=== PATIENT | female | born 1990 | race Caucasian/White ===

== ENCOUNTER 2021-07-22 09:42 | Emergency (ER) | payer SELFPAY ==
[~2021-07-22] VITALS: Ht 165.1 cm; Wt 89.0 kg
--- NOTE | 2021-07-22 09:45 | PHYS DOC ---
General Adult EDM: Chief Complaint: SEIZURE HPI: HPI: Patient is a 31 year old female who presents from home via EMS for reported seizure-like activity. Her boyfriend reportedly noticed that she was shaking while in bed, and she had previously been asleep. EMS reports that she seemed postictal, was apparently briefly combative and confused. She was given IM Versed in route. Currently, she is slightly drowsy but she is awake, fully oriented. She has no recollection of these events. She reports that she felt well when she went to bed last night. She reports she has a mild headache currently. She denies numbness or tingling. She denies chest pain, dyspnea, palpitations, dizziness, vertigo, motor weakness. She denies abdominal pain, nausea or vomiting. She denies use of benzodiazepines or alcohol, also denies any recent cessation of these substances. No prior history of seizures or epilepsy. She does report she has not been sleeping very well lately. She reports that she has been eating and drinking normally. She denies any fevers or chills or recent illness. She denies neck pain or stiffness. She denies any fall, head injury or loss of consciousness recently. She denies or recent state. Review of Systems: Review of Systems: Constitutional: Denies fever or chills. [] Eyes: Denies change in visual acuity., Denies vision loss. HENT: Denies nasal congestion or sore throat. [] Respiratory: Denies cough or shortness of breath. [] Cardiovascular: Denies chest pain or edema. [] GI: Denies abdominal pain, nausea, vomiting, or bowel habit changes. : Denies any urinary symptoms. Musculoskeletal: Denies back pain or joint pain. [] Integument: Denies rash. [] Neurologic: She does report a headache. She denies focal weakness or numbness or tingling. Seizure-like activity reported with postictal period. She denies dizziness or vertigo. She denies syncope. Endocrine: Denies polyuria or polydipsia. [] Lymphatic: Denies swollen glands. [] Psychiatric: Denies depression or anxiety. [] Heart Score: C/O Chest Pain: No Risk Factors: Risk Factors: DM, Current or recent (<one month) smoker, HTN, HLP, family history of CAD, obesity. Risk Scores: Score 0 - 3: 2.5% MACE over next 6 weeks - Discharge Home Score 4 - 6: 20.3% MACE over next 6 weeks - Admit for Clinical Observation Score 7 - 10: 72.7% MACE over next 6 weeks - Early Invasive Strategies Physical Exam: PE: Constitutional: Well developed, well nourished, no acute distress, non-toxic appearance. [] HENT: Normocephalic, atraumatic, oropharynx is patent and clear. No dental or oral trauma or bleeding is noted. Mucous membranes are moist. TMs are clear bilaterally. Nares are patent. No rhinorrhea or epistaxis. Eyes: PERRL, EOMI, conjunctiva normal, no discharge, sclera are clear and anicteric. Neck: Normal range of motion, no tenderness, supple, no stridor. Trachea is midline. No meningismus. Cardiovascular: Tachycardic, regular, +2 radial and dorsalis pedis pulses bilaterally. Lungs & Thorax: Bilateral breath sounds clear to auscultation [] Abdomen: Abdomen is soft, nondistended, nontender to palpation, no palpable masses organomegaly. Skin: Warm, dry, no erythema, no rash. No jaundice. Back: No tenderness, no CVA tenderness. [] Extremities: No tenderness, no cyanosis, no clubbing, ROM intact, no edema. [] Neurologic: Mildly drowsy but awake. She is oriented X 3, cranial nerves II through XII grossly intact. 5 out of 5 motor strength all 4 extremities. Sensation is grossly intact. Speech is clear and fluent. No pronator drift. No dysmetria. No limb ataxia. Psychologic: She has a slightly flat affect, she is tearful, she is pleasant cooperative EKG: EKG: EKG is interpreted at 1014 Rhythm is sinus Rate is 100 bpm No acute ischemia [place] is normal No STEMI Radiology/Procedures: Radiology/Procedures: IMAGING REPORT Signed PATIENT: TORI SIMON NACCOUNT: [id number] : 1990 LOCATION: ER AGE: 31 SEX: F EXAM STATUS: REG ER ORD. PHYSICIAN: OMAR GARCIA DO REASON: seizure PROCEDURE: CT HEAD WO CONTRAST EXAMINATION: CT HEAD/BRAIN WO CLINICAL HISTORY: Seizure TECHNIQUE: Serial axial images without IV contrast were obtained from the vertex to the foramen magnum. CT Dose Reduction Employed: One or more of the following individualized dose reduction techniques were utilized for this examination: 1. Automated exposure control 2. Adjustment of the mA and/or kV according to patient size 3. Use of iterative reconstruction technique. COMPARISON: None FINDINGS: Acute Change: No evidence of an acute infarct or other acute parenchymal process. Hemorrhage: No evidence of acute intracranial hemorrhage. Mass Lesion/Mass Effect: No evidence of intracranial mass or extraaxial fluid collection. No significant mass effect. Parenchyma: Minimal periventricular white matter hypoattenuation adjacent to the frontal horn of the right lateral ventricle, nonspecific. Parenchyma otherwise within normal limits for age. Ventricles: Ventricles within normal limits for age. Paranasal Sinuses and Skull Base: Visualized paranasal sinuses clear. Visualized skull base and soft tissues unremarkable. IMPRESSION: No evidence of acute intracranial abnormality. Minimal nonspecific periventricular white matter changes in the right frontal lobe as described. Electronically signed by: Levi De Jesus DO (07/22/2021 10:51 AM) [facility] DICTATED and SIGNED BY: LEVI DE JESUS DO DATE: 07/22/21 [id number] 0 Course & Med Decision Making: Course & Med Decision Making Pertinent Labs and Imaging studies reviewed. (See chart for details) The patient has remained stable throughout her ED course. She is awake, alert, no longer drowsy, she is fully oriented, she is conversant. She has no physical complaints or discomfort. History does seem most consistent with generalized seizure like activity with postictal state. She has not demonstrated prolonged postictal state, and has not demonstrated altered mental status here, has not demonstrated any other seizure activity here. I have strongly encouraged her to follow-up with a primary care physician as well as outpatient neurology. She is given information for outpatient neurology consultation. I told her she may not drive or operate machinery until she is cleared to do so by her primary care physician and neurology. She will likely require further outpatient testing such as MRI and/or EEG testing. There is no current indication for emergent admission at this time based on current presentation. She is comfortable with this plan of care. She does not usually drive anyway. She will go home with her significant other. I told her to rest, stay well-hydrated, make sure she is avoiding any stimulants, such as excess caffeine, and she should try to get as much adequate sleep as possible. She verbalizes understanding of all instructions given, strict return precautions are given, she is comfortable with the plan of care. Luiz Disclaimer: Luiz Disclaimer: This electronic medical record was generated, in whole or in part, using a voice recognition dictation system. Departure Departure Impression: Primary Impression: Seizure-like activity Disposition: HOME / SELF CARE / HOMELESS Condition: STABLE Referrals: OTTO GERMAIN MD Patient Instructions: Seizure, Adult Additional Instructions: Please return to the ER for any fall, trauma, injury, vomiting, severe headache, weakness, for recurrent seizure activity, difficulty breathing, for acute or severe confusion or altered mental status of or any other concerns. Please do not drive a vehicle or operate machinery until you are cleared by neurology and a primary care physician. Please follow-up with outpatient neurology in order to further evaluate your seizure, you will need some outpatient testing, possible EEG and/or MRI, at the discretion of the neurologist. No medications for seizures will be prescribed at this time, and this will be deferred to the neurologist and/or your primary care physician. OMAR GARCIA DO Jul 22, 2021 09:45
[2021-07-22] MEDS ORDERED: IV NORMAL SALINE 1000ML BAG 1,000 ML IV ONE (10:00)
[2021-07-22 10:23] LABS: BASO % 1 % (0-3); EOS % 1 % (0-3); HEMATOCRIT 42.5 % (36.0-47.0); HEMOGLOBIN 14.1 g/dL (12.0-15.5); LYMPH # 1.9 x10^3/uL (1.0-4.8); LYMPH % 32 % (24-48); MEAN CORPUSCULAR HEMOGLOBIN 28 pg (25-35); MEAN CORPUSCULAR HGB CONC 33 g/dL (31-37); MEAN CORPUSCULAR VOLUME 85 fL (79-100); MONO # 0.5 x10^3/uL (0.0-1.1); MONO % 8 % (0-9); NEUT # 3.5 x10^3/uL (1.8-7.7); NEUT % 59 % (31-73); PLATELET COUNT 296 x10^3/uL (140-400); RED BLOOD COUNT 4.99 x10^6/uL (3.50-5.40); RED CELL DISTRIBUTION WIDTH 14.1 % (11.5-14.5)
--- NOTE | 2021-07-22 10:23 | EKG ---
[facility] [address] [place] [address] Test Date: 2021-07-22 Test Time: 10:13:05 Pat Name: OTRI SIMON Department: Room: Gender: F [employer] R[employer] Clerk: [id number] : 1990 Requested By: OMAR GARCIA Order Number: [id number] Reading MD: Venkat Tabares MD Measurements Intervals [place] Rate: 100 P: 71 AR: 152 QRS: 4 QRSD: 76 T: 23 QT: 320 QTc: 416 Interpretive Statements SINUS RHYTHM Electronically Signed On 07-23-2021 13:29:38 [employer] by Venkat Tabares MD
[2021-07-22 10:34] LABS: CALCIUM 9.8 mg/dL (8.5-10.1); CREATININE 0.7 mg/dL (0.6-1.0); GFR 98.3; POTASSIUM 4.2 mmol/L (3.5-5.1)
[2021-07-22 10:39] LABS: ALBUMIN 3.5 g/dL (3.4-5.0); ALBUMIN/GLOBULIN RATIO 0.9 (1.0-1.7); MAGNESIUM 2.2 mg/dL (1.8-2.4); TOTAL BILIRUBIN 0.3 mg/dL (0.2-1.0); TOTAL PROTEIN 7.4 g/dL (6.4-8.2)
[2021-07-22 10:44] LABS: PREG TEST PT QUAL NEGATIVE (NEG)
--- NOTE | 2021-07-22 10:53 | RAD ---
EXAMINATION: CT HEAD/BRAIN WO CLINICAL HISTORY: Seizure TECHNIQUE: Serial axial images without IV contrast were obtained from the vertex to the foramen magnu m. CT Dose Reduction Employed: One or more of the following individualized dose reduction techniques wer e utilized for this examination: 1. Automated exposure control 2. Adjustment of the mA and/or kV ac cording to patient size 3. Use of iterative reconstruction technique. COMPARISON: None FINDINGS: Acute Change: No evidence of an acute infarct or other acute parenchymal process. Hemorrhage: No evidence of acute intracranial hemorrhage. Mass Lesion/Mass Effect: No evidence of intracranial mass or extraaxial fluid collection. No signific ant mass effect. Parenchyma: Minimal periventricular white matter hypoattenuation adjacent to the frontal horn of the right lateral ventricle, nonspecific. Parenchyma otherwise within normal limits for age. Ventricles: Ventricles within normal limits for age. Paranasal Sinuses and Skull Base: Visualized paranasal sinuses clear. Visualized skull base and soft tissues unremarkable. IMPRESSION: No evidence of acute intracranial abnormality. Minimal nonspecific periventricular white matter changes in the right frontal lobe as described. Electronically signed by: Levi Yung DO (07/22/2021 10:51 AM) [facility]
[2021-07-22 12:01] LABS: BILIRUBIN,URINE NEGATIVE (NEG); CLARITY,URINE CLEAR; COLOR,URINE YELLOW; NITRITE,URINE NEGATIVE (NEG); PROTEIN,URINE NEGATIVE (NEG-TRACE)
[2021-07-22 12:07] LABS: BARBITURATES NEG (NEG); BENZODIAZEPINES POS (NEG); CANNABINOIDS NEG (NEG); COCAINE NEG (NEG); METHADONE NEG (NEG); OPIATES NEG (NEG); PHENCYCLIDINE NEG (NEG)
[2021-07-22 12:11] LABS: AMPHETAMINE/METHAMPHETAMINE NEG (NEG)
[2021-07-22 12:15] LABS: BACTERIA,URINE 0 /HPF (0-FEW); RBC,URINE 0 /HPF (0-2); WBC,URINE 0 /HPF (0-4)
[2021-07-22 12:16] LABS: AMORPHOUS SEDIMENT,UR PRESENT /HPF; HYALINE CASTS, URINE FEW /HPF
[2021-07-22 13:48] VITALS: BP 124/75
== END 2021-07-22 13:49 | disposition home or self-care (01) ==
LOC: ER 09:42
DX: R56.9 Unspecified convulsions (principal); R42 Dizziness and giddiness; R41.0 Disorientation, unspecified; R51.9 Headache, unspecified
CPT/HCPCS: 36415; 70450; 80053; 80307; 81001; 81025; 83735; 84703; 85025; 93005; 96360; 99285; G0480; J7030